=== PATIENT | female | born 1955 | race Caucasian/White ===

== ENCOUNTER 2020-04-13 09:38 | Emergency (ER) | payer MEDICARE, OTHER ==
[~2020-04-13] VITALS: Ht 165.1 cm; Wt 75.0 kg
[2020-04-13 09:49] VITALS: BP 134/89
--- NOTE | 2020-04-13 10:09 | PHYS DOC ---
Past History Past Medical History: No Pertinent History Past Surgical History: Hysterectomy Alcohol Use: None General Adult EDM: Chief Complaint: FOOT INJURY PAIN HPI: HPI: 64-year-old female presents with right lateral foot pain and bruising. Patient has tripped over things a couple of times lately. The second time, she had significant inversion of the foot. She is able to walk but she has an area of bruising on the top by the toes and the lateral side. It is quite uncomfortable with walking and she wants to make sure there is not a significant injury. She denies any other injuries or complaints. She has an appointment with a new family doctor next week. Review of Systems: Review of Systems: Constitutional: Denies fever or chills Eyes: Denies change in visual acuity HENT: Denies nasal congestion or sore throat Respiratory: Denies cough or shortness of breath Cardiovascular: Denies chest pain or edema GI: Denies abdominal pain, nausea, vomiting, bloody stools or diarrhea : Denies dysuria Musculoskeletal: Right foot pain Integument: Denies rash Neurologic: Denies headache, focal weakness or sensory changes Endocrine: Denies polyuria or polydipsia Lymphatic: Denies swollen glands Psychiatric: Denies depression or anxiety Heart Score: Risk Factors: Risk Factors: DM, Current or recent (<one month) smoker, HTN, HLP, family history of CAD, obesity. Risk Scores: Score 0 - 3: 2.5% MACE over next 6 weeks - Discharge Home Score 4 - 6: 20.3% MACE over next 6 weeks - Admit for Clinical Observation Score 7 - 10: 72.7% MACE over next 6 weeks - Early Invasive Strategies Allergies: Allergies: Allergies Coded Allergies Type Severity Reaction Last Updated Verified aspirin Allergy Unknown 04/13/20 Yes Physical Exam: PE: Constitutional: Well developed, well nourished, no acute distress, non-toxic appearance. [] HENT: Normocephalic, atraumatic, bilateral external ears normal, oropharynx moist, no oral exudates, nose normal. [] Eyes: PERRLA, EOMI, conjunctiva normal, no discharge. [] Neck: Normal range of motion, no tenderness, supple, no stridor. [] Cardiovascular:Heart rate regular rhythm, no murmur [] Lungs & Thorax: Bilateral breath sounds clear to auscultation [] Abdomen: Bowel sounds normal, soft, no tenderness, no masses, no pulsatile masses. [] Skin: Warm, dry, no erythema, no rash. [] Back: No tenderness, no CVA tenderness. [] Extremities: Tenderness over the right fifth metatarsal, bruising over the fourth and fifth distal metatarsal, no obvious deformity. [] Neurologic: Alert and oriented X 3, normal motor function, normal sensory function, no focal deficits noted. [] Psychologic: Affect normal, judgement normal, mood normal. [] Current Patient Data: Vital Signs: Vital Signs Date Time Temp Pulse Resp B/P (MAP) Pulse Ox O2 Delivery O2 Flow Rate FiO2 04/13/20 09:49 97.8 94 16 134/89 (104) 98 Room Air EKG: EKG: [] Radiology/Procedures: Radiology/Procedures: [] Impressions: FOOT RIGHT 3V 04/13/2020 9:47 AM INDICATION: Bruising and swelling after fall COMPARISON: None available. TECHNIQUE: 3 views of the right foot are provided. FINDINGS/ IMPRESSION: There is an obliquely oriented, mildly displaced fracture involving the midshaft of the fifth metatarsal without intra-articular extension. Adjacent soft tissue swelling is present. Advanced joint space narrowing involving the first metatarsophalangeal joint with mild subluxation. There is marginal osteophytosis compatible with moderate to advanced osteoarthrosis. Electronically signed by: Destiny Tomas MD (04/13/2020 10:11 AM) [id number] DICTATED AND SIGNED BY: DESTINY TOMAS MD DATE: 04/13/20 1011 CC: YAHIR DOHERTY DO; MARYAM JIMENEZ DO ~ Course & Med Decision Making: Course & Med Decision Making Pertinent Labs and Imaging studies reviewed. (See chart for details) The patient does have a fracture of the dorsal body. It is an angulated fra cture with minimal displacement. We will place her in a splint and put her on crutches. I have given her a referral for orthopedics. She is stable for discharge at this time. [] Dragon Disclaimer: Dragon Disclaimer: This electronic medical record was generated, in whole or in part, using a voice recognition dictation system. Departure Departure: Impression: Primary Impression: Fracture of fifth metatarsal bone of right foot Qualified Codes: S92.351A - Displaced fracture of fifth metatarsal bone, right foot, initial encounter for closed fracture Disposition: 01 HOME/RESIDENCE PRIOR TO ADM Condition: STABLE Referrals: YAHIR DOHERTY DO (PCP) Patient Instructions: Foot Fracture Justification of Admission: Justification of Admission: Justification of Admission Dx: N/A MARYAM JIMENEZ DO Apr 13, 2020 10:09
--- NOTE | 2020-04-13 10:13 | RAD ---
FOOT RIGHT 3V 04/13/2020 9:47 AM INDICATION: Bruising and swelling after fall COMPARISON: None available. TECHNIQUE: 3 views of the right foot are provided. FINDINGS/ IMPRESSION: There is an obliquely oriented, mildly displaced fracture involving the midshaft of the fifth metatarsal without intra-articular extension. Adjacent soft tissue swelling is present. Advanced joint space narrowing involving the first metatarsophalangeal joint with mild subluxation. There is marginal osteophytosis compatible with moderate to advanced osteoarthrosis. Electronically signed by: Callie Tomas MD (04/13/2020 10:11 AM) [id number]
== END 2020-04-13 10:57 | disposition home or self-care (01) ==
LOC: ER 09:38
DX: S92.351A Displaced fracture of fifth metatarsal bone, right foot, initial encounter for closed fracture (principal); Z88.6 Allergy status to analgesic agent; W18.41XA Slipping, tripping and stumbling without falling due to stepping on object, initial encounter; Y93.89 Activity, other specified; Y92.89 Other specified places as the place of occurrence of the external cause; Y99.8 Other external cause status
CPT/HCPCS: 29515; 73630; 99283

== ENCOUNTER 2021-02-23 21:52 | Emergency (ER) | payer MEDICARE, OTHER ==
[~2021-02-23] VITALS: Ht 165.1 cm; Wt 75.0 kg
[2021-02-23 22:00] VITALS: BP 131/83
[2021-02-23] MEDS ORDERED: ACETAMINOPHEN 500 MG TABLET PO ONE (22:30)
--- NOTE | 2021-02-23 22:57 | PHYS DOC ---
Past History Past Medical History: Hypertension Past Surgical History: Hysterectomy, Other Additional Past Surgical Histo: bladder lift,catarac Alcohol Use: None Adult General Chief Complaint Chief Complaint: FOOT INJURY PAIN HPI HPI Patient is a 65-year-old female who presents with left foot/ankle pain, 6 out of 10, dull and achy in nature after tripping over an ottoman and twisting the foot/ankle at home. Denies any other injuries. Able to walk but it does cause discomfort. Review of Systems Review of Systems Review of systems otherwise unremarkable except noted in HPI Current Medications Current Medications Current Medications Medications (Trade) Dose Ordered Sig/Mary Kay Start Time Stop Time Status Last Admin Dose Admin Acetaminophen (Tylenol) 1,000 mg 1X ONCE 02/23/21 22:30 02/23/21 22:31 DC Allergies Allergies Allergies Coded Allergies Type Severity Reaction Last Updated Verified aspirin Allergy Intermediate 02/23/21 Yes Physical Exam Physical Exam Constitutional: Well developed, well nourished, no acute distress, non-toxic appearance. [] Skin: Warm, dry, no erythema, no rash. [] Back: No tenderness, Extremities: Mild left ankle and dorsum of the foot generalized tenderness, mild swelling with no obvious deformities or bruising. Range of motion intact, neurovascular exam intact. Neurologic: Alert and oriented X 3, normal motor function, normal sensory function, no focal deficits noted. [] Psychologic: Affect normal, judgement normal, mood normal. [] Current Patient Data Vital Signs Vital Signs Date Time Temp Pulse Resp B/P (MAP) Pulse Ox O2 Delivery O2 Flow Rate FiO2 02/23/21 22:00 98.6 90 16 131/83 (99) 98 Room Air EKG EKG [] Radiology/Procedures Radiology/Procedures [] FINDINGS/ IMPRESSION: There is soft tissue swelling overlying the medial malleolus. Ankle mortise is intact. Mild calcaneal enthesopathy is present. Moderate degenerative changes are present at the first MTP joint with a chronic appearing fragmented osteophyte medially. There is a 1.6 cm lucency at the base of the third metatarsal, likely a degenerative cyst. Mild degenerative changes seen elsewhere throughout the foot. No acute fracture or dislocation. Soft tissues of the foot are within normal limits. Electronically signed by: Justin Lee MD (02/23/2021 11:23 PM) [facility] Heart Score C/O Chest Pain: No Risk Factors: Risk Factors: DM, Current or recent (<one month) smoker, HTN, HLP, family history of CAD, obesity. Risk Scores: Risk Factors: DM, Current or recent (<one month) smoker, HTN, HLP, family history of CAD, obesity. Course & Med Decision Making Course & Med Decision Making Patient is a 65-year-old female presents with left foot and ankle pain after twisting it on an automated home Vital signs not concerning. Physical exam noted above. Given ice pack. Given Tylenol. Imaging with no acute osseous abnormalities. Discussed findings with patient. Advised on pain control at home. Advised to follow-up with primary care physician as needed. Gave return precautions to the ED. Patient grateful, verbalized understanding and agreed with plan of discharge. [] Dragon Disclaimer Dragon Disclaimer This electronic medical record was generated, in whole or in part, using a voice recognition dictation system. Departure Departure: Impression: Primary Impression: Ankle sprain Disposition: HOME / SELF CARE / HOMELESS Condition: GOOD Referrals: ALEKSEY DOSHI MD (PCP) Patient Instructions: Ankle Sprain, RICE - Routine Care for Injuries Additional Instructions: Please read all the attached information very carefully. You can use Tylenol, ibuprofen and ice as needed for pain control at home. Please follow-up with your primary care physician as needed. Please come back to the ED with new or concerning symptoms as discussed. CAMDEN KRISHNAMURTHY MD Feb 23, 2021 22:57
--- NOTE | 2021-02-23 23:25 | RAD ---
Exam Date: 02/23/2021 10:22 PM XR FOOT_LEFT 3 VIEWS, XR EXAM OF ANKLE_LEFT 3V Indication: Reason: trauma, SWELLING, FOREFOOT PAIN, BRUISING / Spl. Instructions: / History: FINDINGS/ IMPRESSION: There is soft tissue swelling overlying the medial malleolus. Ankle mortise is intact. Mild calcaneal enthesopathy is present. Moderate degenerative changes are present at the first MTP joint with a chr onic appearing fragmented osteophyte medially. There is a 1.6 cm lucency at the base of the third met atarsal, likely a degenerative cyst. Mild degenerative changes seen elsewhere throughout the foot. No acute fracture or dislocation. Soft tissues of the foot are within normal limits. Electronically signed by: Justin Lee MD (02/23/2021 11:23 PM) AUGIE
== END 2021-02-23 23:52 | disposition home or self-care (01) ==
LOC: ER 21:52
DX: S93.402A Sprain of unspecified ligament of left ankle, initial encounter (principal); I10 Essential (primary) hypertension; Z88.6 Allergy status to analgesic agent; W18.40XA Slipping, tripping and stumbling without falling, unspecified, initial encounter; Y93.89 Activity, other specified; Y92.89 Other specified places as the place of occurrence of the external cause; Y99.8 Other external cause status
CPT/HCPCS: 73610; 73630; 99284

== ENCOUNTER 2021-06-23 15:03 | Emergency (ER) | payer MEDICARE, OTHER ==
[~2021-06-23] VITALS: Ht 165.1 cm; Wt 75.0 kg
[2021-06-23 15:04] VITALS: BP 141/91
--- NOTE | 2021-06-23 15:48 | PHYS DOC ---
Past History Past Medical History: Hypertension (LYNDA VENTURA APRN) Past Surgical History: Hysterectomy, Other Additional Past Surgical Histo: bladder lift,catarac (LYNDA VENTURA APRN) Alcohol Use: None (LYNDA VENTURA APRN) General Adult EDM: Chief Complaint: LACERATION/AVULSION HPI: HPI: Patient is a 65-year-old female that presents today for a right index finger laceration. Patient states 4 hours ago she was working with a glass and the glass broke cutting her finger, she presents now because the laceration continues to bleed. No uncontrolled bleeding noted at this time. Patient does not recall last tetanus shot (LYNDA VENTURA APRN) Review of Systems: Review of Systems: Constitutional: Denies fever or chills Eyes: Denies change in visual acuity HENT: Denies nasal congestion or sore throat Respiratory: Denies cough or shortness of breath Cardiovascular: Denies chest pain or edema GI: Denies abdominal pain, nausea, vomiting, bloody stools or diarrhea : Denies dysuria Musculoskeletal: Denies back pain or joint pain Integument: laceration to right index finger Neurologic: Denies headache, focal weakness or sensory changes Endocrine: Denies polyuria or polydipsia Lymphatic: Denies swollen glands Psychiatric: Denies depression or anxiety (LYNDA VENTURA APRN) Allergies: Allergies: Allergies Coded Allergies Type Severity Reaction Last Updated Verified aspirin Allergy Intermediate 02/23/21 Yes (LYNDA VENTURA APRN) Physical Exam: PE: Constitutional: Well developed, well nourished, no acute distress, non-toxic appearance. [] HENT: Normocephalic, atraumatic, bilateral external ears normal, oropharynx moist, no oral exudates, nose normal. [] Eyes: PERRLA, EOMI, conjunctiva normal, no discharge. [] Neck: Normal range of motion, no tenderness, supple, no stridor. [] Cardiovascular:Heart rate regular rhythm, no murmur [] Lungs & Thorax: Bilateral breath sounds clear to auscultation [] Abdomen: Bowel sounds normal, soft, no tenderness, no masses, no pulsatile masses. [] Skin: laceration to right index finger, distal end, 1cm laceration noted to medal edge of finger with flap noted, one 0.25 cm note laceration noted on tip of finger, no active bleeding noted. sensation distal to laceration noted intact and cap refill is < 2 seconds Back: No tenderness, no CVA tenderness. [] Extremities: No tenderness, no cyanosis, no clubbing, ROM intact, no edema. [] Neurologic: Alert and oriented X 3, normal motor function, normal sensory function, no focal deficits noted. [] Psychologic: Affect normal, judgement normal, mood normal. [] (LYNDA VENTURA APRN) Current Patient Data: Vital Signs: Vital Signs Date Time Temp Pulse Resp B/P (MAP) Pulse Ox O2 Delivery O2 Flow Rate FiO2 06/23/21 15:04 99.0 98 18 141/91 (108) 99 Room Air (LYNDA VENTURA APRN) EKG: EKG: [] (LYNDA VENTURA APRN) Radiology/Procedures: Radiology/Procedures: [] (LYNDA VENTURA APRN) Heart Score: C/O Chest Pain: N/A Risk Factors: Risk Factors: DM, Current or recent (<one month) smoker, HTN, HLP, family history of CAD, obesity. Risk Scores: Score 0 - 3: 2.5% MACE over next 6 weeks - Discharge Home Score 4 - 6: 20.3% MACE over next 6 weeks - Admit for Clinical Observation Score 7 - 10: 72.7% MACE over next 6 weeks - Early Invasive Strategies (LYNDA VENTURA APRN) Course & Med Decision Making: Course & Med Decision Making Pertinent Labs and Imaging studies reviewed. (See chart for details) Right index finger laceration was irrigated laceration repair made with Dermabond. Dressing applied. Patient instructed to clean remaining lacerations with mild soap and water, keep wound clean and dry, Dermabond will wear off over time. Patient is instructed to return for any signs and symptoms of infection. Tetanus status was updated [] (LYNDA VENTURA APRN) Dragon Disclaimer: Dragon Disclaimer: This electronic medical record was generated, in whole or in part, using a voice recognition dictation system. (LYNDA VENTURA APRN) Attending Co-Sign The patient was seen and interviewed as well as examined at the bedside. The chart was reviewed. The case was discussed. Agree with the plan of care. (MARYAM JIMENEZ DO) Departure Departure: Impression: Primary Impression: Laceration of index finger of right hand without complication Disposition: HOME / SELF CARE / HOMELESS Condition: GOOD Referrals: PCP,NO (PCP) MANOHAR WEBB MD Patient Instructions: Fingertip Laceration Additional Instructions: Keep wound clean and dry, clean with mild soap and water. return for any signs or symptoms of infection. LYNDA VENTURA APRN Jun 23, 2021 15:48 MARYAM JIMENEZ DO Jun 24, 2021 09:15
[2021-06-23] MEDS ORDERED: DIPH,PERTUSS(ACELL),TET VAC/PF 0.5 ML SYRINGE. VAX IM ONE (16:00)
== END 2021-06-23 16:24 | disposition home or self-care (01) ==
LOC: ER 15:03
DX: S61.210A Laceration without foreign body of right index finger without damage to nail, initial encounter (principal); I10 Essential (primary) hypertension; Z88.6 Allergy status to analgesic agent; W25.XXXA Contact with sharp glass, initial encounter; Y93.89 Activity, other specified; Y92.89 Other specified places as the place of occurrence of the external cause; Y99.8 Other external cause status
CPT/HCPCS: 12001; 90471; 90715; 99283